=== PATIENT | male | born 1970 | race Caucasian/White ===

== ENCOUNTER 2021-01-10 14:19 | Emergency (ER) | payer MEDICAID ==
[~2021-01-10] VITALS: Ht 177.8 cm; Wt 78.0 kg
[2021-01-10 14:26] VITALS: BP 161/90; Ht 177.8 cm; Wt 78.0 kg
[2021-01-10 15:04] LABS: BASOPHIL % 0.7 % (0.2-1.5); PLATELET COUNT 322 x10^3mcL (152-348); RED CELL DISTRIBUTION WIDTH 13.6 % (12.1-16.2)
[2021-01-10 15:08] LABS: CALCIUM 9.2 mg/dL (8.5-10.1); CARBON DIOXIDE 28.1 mmol/L (21-32); CHLORIDE SERUM 102 mmol/L (98-107); CREATININE SERUM 0.8 mg/dL (0.7-1.3); GFR1 > 60 mL/min; GLUCOSE SERUM 106 mg/dL (74-106); POTASSIUM SERUM 3.8 mmol/L (3.5-5.1); SODIUM SERUM 139 mmol/L (136-145)
[2021-01-10 15:14] LABS: ALBUMIN 4.3 g/dL (3.4-5.0); ALKALINE PHOSPHATASE 118 U/L (46-116); ALT/SGPT 44 U/L (16-63); AST/SGOT 29 U/L (15-37); BILIRUBIN TOTAL 0.3 mg/dL (0.20-1.00); LIPASE 198 IU/L (73-393); TOTAL PROTEIN, SERUM 7.8 g/dL (6.4-8.2)
[2021-01-10 15:16] LABS: AMYLASE 121 U/L (25-115)
[2021-01-10] MEDS ORDERED: ULTRAM50 MG PO (16:06)
[2021-01-10] MEDS ORDERED: ANUSOL-HC30 GM TOP (16:06)
[2021-01-10] MEDS ORDERED: PEPCID AC20 M2 PO (16:06)
== END 2021-01-10 16:19 | disposition home or self-care (01) ==
LOC: ED 14:19
PROVIDERS: Emergency Medicine
DX: R10.817 Generalized abdominal tenderness (principal); N50.811 Right testicular pain
CPT/HCPCS: J1885